=== PATIENT | male | born 1940 | race Caucasian/White ===

== ENCOUNTER 2018-05-17 04:38 | Observation (INO) ==
--- NOTE | 2018-05-17 05:04 | ED ---
HPI General Chief Complaint: Chest Pain Stated Complaint: post op issues Time Seen by Provider: 05/17/18 04:59 Source: patient and family Mode of arrival: ambulatory Limitations: no limitations History of Present Illness HPI narrative: 78-year-old male patient with history of bladder cancer status post treatment, had a herniorrhaphy done yesterday by Dr. Otoole, was released today and returns because he states that he started getting a substernal chest pain which he rates as a 3 out of 10, then vomited brownish vomitus according to his daughter. He states that the chest discomfort then subsided. He also states that he has had trouble urinating since yesterday, dribbling. He denies any fevers, diarrhea, or other symptoms. He states that he is not able to eat very much. Modifying Factors: None Associated Signs & Symptoms: Nausea, vomiting, chest discomfort, difficulty urinating Risk Factors: Postop hernia repair yesterday Related Data Home Medications Medication Instructions Recorded Confirmed tamsulosin [Flomax] 10 mg PO DAILY 05/15/18 05/17/18 Allergies Allergy/AdvReac Type Severity Reaction Status Date / Time No Known Allergies Allergy Verified 05/15/18 10:37 Review of Systems ROS: all other systems reviewed are negative PMFSH History History Provided By: Patient Medical History Medical History Enlarged prostate (Acute) History of bladder cancer (Acute) Inguinal hernia (Acute) Surgical History Surgical History H/O cystoscopy (Acute) H/O hernia repair (Acute) Hx of cholecystectomy (Acute) Social History Social History Substance History: No History of Abuse Second Hand Smoke Exposure: No Smoking Status: Never smoker How Often Do You Have a Drink Containing Alcohol: 4 or more times a week Recent Travel in [facility] within the Last 8 Weeks: No Recent Out of Country Travel within the Last 8 Weeks: No Exam Narrative Exam Narrative: GENERAL: Well-developed elderly male patient currently in mild distress. Awake and oriented x3. SKIN: Focused skin assessment warm/dry. HEAD: Atraumatic. Normocephalic. EYES: Pupils equal and round. No scleral icterus. No injection or drainage. ENT: No nasal bleeding or discharge. Mucous membranes pink and moist. NECK: Trachea midline. No JVD. CARDIOVASCULAR: Regular rate and rhythm. No murmur appreciated. RESPIRATORY: No accessory muscle use. Clear to auscultation. Breath sounds equal bilaterally. GASTROINTESTINAL: Abdomen soft, non-tender, mildly distended. Hepatic and splenic margins not palpable. The abdominal laparoscopic incisions look clean, dry, intact and without signs of redness or drainage. MUSCULOSKELETAL: No obvious deformities. No clubbing. No cyanosis. No edema. NEUROLOGICAL: Awake and alert. No obvious cranial nerve deficits. Motor grossly within normal limits. Normal speech. PSYCHIATRIC: Appropriate mood and affect; insight and judgment normal. Course Initial Documented Vital Signs Temperature 99.8 F H 05/17/18 04:39 Pulse Rate 126 H 05/17/18 04:39 Respiratory Rate 18 05/17/18 04:39 Blood Pressure 142/75 H 05/17/18 04:39 Pulse Oximetry 93 L 05/17/18 04:39 Last Documented Vital Signs Temperature 99.8 F H 05/17/18 04:39 Pulse Rate 113 H 05/17/18 04:59 Respiratory Rate 20 05/17/18 04:59 Blood Pressure 145/77 H 05/17/18 04:59 Pulse Oximetry 100 05/17/18 04:59 Medical Decision Making MDM Narrative Medical decision making narrative: A Guzmán was placed and after the Guzmán placement, patient drained more than 600 cc of urine. He was also given Zofran. He felt much better and on reevaluation at 7 AM, he reports that his symptoms are pretty much gone. I have talked to Dr. Otoole regarding lab work, x-ray findings. There is some prominent air in the left side descending colon and did not and also states that considering that he had gotten intraperitoneal in this area, he would expect to see some air in this area and this postsurgical rather than an acute process. Especially considering that the patient is doing better. At this point, he states that he be willing to admit the patient as an observation if the patient wants to stay where the patient can be released with follow-up closely with him in the office. In addition, Guzmán catheter will need to be managed with a leg bag and patient will need to follow-up with urology. At this point, had relate the discussion to the patient and he states that he does not want to stay in the hospital wants to be released home. He also does not want me to keep the leg bag and. He is on Flomax and is fairly informed regarding the urinary issues and he would prefer me to remove the Guzmán catheter and do a trial urination and plans to be released. At this point, my plan would be to release him as long as everything turns out fine with urinating. He can follow-up as an outpatient. Return for worsening of symptoms as needed. Medical Screen Exam Complete: Yes Emergency Medical Condition: Yes Differential Diagnosis Differential Diagnosis: Postop vomiting versus obstruction versus medication side effect versus dehydration versus electrolyte abnormalities versus urinary outflow obstruction Lab Data Lab results reviewed: Yes I reviewed the patient's lab results. Result diagrams: 05/17/18 05:15 05/17/18 05:15 Lab Results 05/17/18 05/17/18 Range/Units 05:15 05:15 WBC 13.5 H (4.0-11.0) th/mm3 RBC 3.94 L (4.50-5.90) mil/mm3 Hgb 12.8 L (13.0-17.0) gm/dL Hct 36.9 L (39.0-51.0) % MCV 93.8 (80.0-100.0) fL MCH 32.5 (27.0-34.0) pg MCHC 34.6 (32.0-36.0) % RDW 14.5 (11.6-17.2) % Plt Count 132 L (150-450) th/mm3 MPV 9.0 (7.0-11.0) fL Neut % (Auto) 77.5 H (16.0-70.0) % Lymph % (Auto) 7.5 L (9.0-44.0) % Burt % (Auto) 14.9 H (0.0-8.0) % Eos % (Auto) 0.0 (0.0-4.0) % Baso % (Auto) 0.1 (0.0-2.0) % Neut # (Auto) 10.4 H (1.8-7.7) th/mm3 Lymph # (Auto) 1.0 (1.0-4.8) th/mm3 Burt # (Auto) 2.0 H (0.0-0.9) th/mm3 Eos # (Auto) 0.0 (0.0-0.4) th/mm3 Baso # (Auto) 0.0 (0.0-0.2) th/mm3 WBC Differential . Differential Comment Auto diff final Sodium 135 L (136-145) meq/L Potassium 3.9 (3.5-5.1) meq/L Chloride 99 (98-107) meq/L Carbon Dioxide 27.0 (21.0-32.0) meq/L Anion Gap 9 (5-15) meq/L BUN 14 (7-18) mg/dL Creatinine 1.06 (0.60-1.30) mg/dL Estimated GFR 67 L (>89) mL/min Random Glucose 142 H (74-106) mg/dL Calcium 8.5 (8.5-10.1) mg/dL Total Bilirubin 1.3 H (0.2-1.0) mg/dL AST 23 (15-37) U/L ALT 23 (12-78) U/L Alkaline Phosphatase 52 (45-117) U/L Troponin I Less than 0.02 L (0.02-0.05) ng/mL Total Protein 7.8 (6.4-8.2) g/dL Albumin 3.3 L (3.4-5.0) g/dL Lipase 123 (73-393) U/L Imaging Data Attestation: I personally reviewed and interpreted this imaging study as follows : Radiologist's impression: Chest X-Ray 05/17/18 04:59 CONCLUSION: Question recent surgery. Lungs are clear. Abdomen X-Ray 05/17/18 05:04 CONCLUSION: Very prominent air radiolucency of the descending colon. Noncontrast CT scan of the abdomen and pelvis could be performed to evaluate for pneumatosis ECG Data Attestation: I personally reviewed and interpreted this ECG as follows: Interpretation: EKG shows sinus tachycardia rate of 112 bpm. No signs of acute ST elevations or depressions. Discharge Plan Discharge Disposition Patient Disposition: 01 Discharge Home Discharge Condition Condition: Stable Discharge Order Discharge Orders: Discharge Order (Routine); Ordered 05/17/18 Ordered By: Sam Villanueva Discharge Details Anticipated Discharge Date: 05/17/18 Diagnosis: Acute urinary retention, Postoperative vomiting Physicians Team ED Provider: Sam Villanueva Primary Care Provider: Primary Care Radha Lopez Rxs /Orders / Referrals /Forms Prescriptions: No Action tamsulosin [Flomax] 0.4 mg Capsule 10 mg PO DAILY RF: 0 Referrals: Kyree Otoole MD [Physician] - 3 Days Discharge Instructions Patient Printed Instructions: Chest Pain (ED), Urinary Retention in Men (ED) Discharge Interventions Interventions: Vital Signs Last Done: 05/17/18 04:41 Status ED Status: With Doctor
[2018-05-17 05:50] LABS: Baso % (Auto) 0.1 % (0.0-2.0); Hematocrit 36.9 % (39.0-51.0); Hemoglobin 12.8 gm/dL (13.0-17.0); Lymph % (Auto) 7.5 % (9.0-44.0); Mean Corpuscular HGB Conc 34.6 % (32.0-36.0); Mean Corpuscular Hemoglobin 32.5 pg (27.0-34.0); Mean Corpuscular Volume 93.8 fL (80.0-100.0); Mono % (Auto) 14.9 % (0.0-8.0); Neut # (Auto) 10.4 th/mm3 (1.8-7.7); Neut % (Auto) 77.5 % (16.0-70.0); Platelet Count 132 th/mm3 (150-450); Red Blood Count 3.94 mil/mm3 (4.50-5.90); Red Cell Distribution Width 14.5 % (11.6-17.2); White Blood Count 13.5 th/mm3 (4.0-11.0)
[2018-05-17 06:08] LABS: Alanine Aminotransferase 23 U/L (12-78); Albumin 3.3 g/dL (3.4-5.0); Anion Gap 9 meq/L (5-15); Aspartate Aminotransferase 23 U/L (15-37); Blood Urea Nitrogen 14 mg/dL (7-18); Calcium 8.5 mg/dL (8.5-10.1); Chloride 99 meq/L (98-107); Glomerular Filtration Rate 67 mL/min (>89); Glucose,Random 142 mg/dL (74-106); Lipase 123 U/L (73-393); Potassium 3.9 meq/L (3.5-5.1); Sodium 135 meq/L (136-145)
[2018-05-17 06:12] LABS: Alkaline Phosphatase 52 U/L (45-117); Total Protein 7.8 g/dL (6.4-8.2)
--- NOTE | 2018-05-17 06:22 | XR ---
EXAM DATE: 05/17/2018 5:38 AM EST AGE/SEX: 78 years / Male INDICATIONS: Chest pain. CLINICAL DATA: This is the patient's initial encounter. Patient reports that signs and symptoms have been present for 1 day and indicates a pain score of 3/10. MEDICAL/SURGICAL HISTORY: Carcinoma, bladder. Inguinal hernia repair. Cholecystectomy. Cystosc opy. COMPARISON: No prior exams available for comparison. FINDINGS: A single AP view of the chest demonstrates the lungs to be symmetrically aerated without evidence of mass, infiltrate or effusion. The some air underneath the right hemidiaphragm. The cardiomediastinal contours are unremarkable. Osseous structures are intact. CONCLUSION: Question recent surgery. Lungs are clear. Electronically signed by: Micah Mcneal MD Board Certified Radiologist 05/17/2018 6:20 AM EST
--- NOTE | 2018-05-17 06:29 | XR ---
EXAM DATE: 05/17/2018 5:40 AM EST AGE/SEX: 78 years / Male INDICATIONS: Vomiting. CLINICAL DATA: This is the patient's initial encounter. Patient reports that signs and symptoms have been present for 1 day and indicates a pain score of 3/10. MEDICAL/SURGICAL HISTORY: Carcinoma, bladder. Cholecystectomy. Inguinal hernia repair. Cystosc opy. COMPARISON: No prior exams available for comparison. FINDINGS: Supine and upright views of the abdomen were performed. The abdominal bowel gas pattern is normal. No air-fluid levels are seen. No abnormal masses, calcifications, or organomegaly is seen. The visualiz ed lower lungs are clear. No evidence of free intraperitoneal gas. The osseous structures are unremar kable. Cholecystectomy clips. Surgical clips throughout the right side of the pelvis likely hernia re pair. I don't see any definite pneumatosis but the anterior density in the left colon is quite prominent. T here is also some linear air density overlying the ilioischial line. Mild rightward scoliosis upper lumbar spine CONCLUSION: Very prominent air radiolucency of the descending colon. Noncontrast CT scan of the abdomen and pelvi s could be performed to evaluate for pneumatosis Electronically signed by: Micah Mcneal MD Board Certified Radiologist 05/17/2018 6:28 AM EST
[2018-05-17] MEDS ORDERED: Sodium Chlor 0.9% Inj 500 ML IV.SIG SCH (08:00)
--- NOTE | 2018-05-17 08:10 | ECG ---
Date Performed: 05/17/2018 Time Performed: 04:54:41 PTAGE: 78 years EKG: SINUS TACHYCARDIA WITH FIRST DEGREE AV BLOCK POSSIBLE LEFT ATRIAL ENLARGEMENT PROBABLE INFE RIOR MYOCARDIAL INFARCTION ABNORMAL ECG PREVIOUS TRACING : 05/16/2018 09.15 DOCTOR: Micah Fasutin Interpretating Date/Time 05/17/2018 08:09:51
[2018-05-17] MEDS ORDERED: Promethazine 25 MG Supp RECTAL PRN (10:52)
[2018-05-17] MEDS ORDERED: Bisacodyl 10 MG Supp RECTAL PRN (10:52)
[2018-05-17] MEDS ORDERED: Post-op Orders (for Pharmacy) OTHER ONE (10:52)
[2018-05-17] MEDS ORDERED: ceFAZolin Inj 1,000 MG in Sodium Chlor 0.9% Inj 100 ML IV.SIG SCH (11:00)
[2018-05-17] MEDS ORDERED: Morphine Inj 4 MG/ML Vial IV.PUSH PRN (11:30)
[2018-05-17] MEDS ORDERED: Sod Chloride 0.9% Inj 1,000 ML IV.CONT SCH (11:30)
[2018-05-17] MEDS ORDERED: levoFLOXacin 750 MG Tablet PO SCH (16:00)
[2018-05-17 18:30] VITALS: BP 128/58; PULSE 109; RESP 16; TEMP 98.4; O2SAT 96
[2018-05-17] MEDS ORDERED: Senna/Docusate Sodium 8.6/50 MG Tablet PO SCH (21:00)
--- NOTE | 2018-05-17 21:56 | MH ---
cc: Kyree Otoole MD DATE OF ADMISSION: 05/17/2018 CHIEF COMPLAINT: Nausea, vomiting, abdominal pain, urinary retention. HISTORY OF PRESENT ILLNESS: The patient is a 78-year-old male with several medical issues, recent right inguinal hernia repair, who presents with nausea, vomiting, abdominal pain and urinary retention. The patient came in the Emergency Department for evaluation with Guzmán catheter placement and 600 mL of urine obtained. The patient also had nausea medications. The patient was feeling better and consideration for observation admission. He also was complaining of chest discomfort, which has subsided. PAST MEDICAL HISTORY: Bladder cancer, enlarged prostate, inguinal hernia. PAST SURGICAL HISTORY: Cystoscopy, hernia repair on right, cholecystectomy. SOCIAL HISTORY: Denies smoking, IVDA or ETOH. ALLERGIES: NO KNOWN DRUG ALLERGIES. MEDICATIONS: See EMR. FAMILY HISTORY: Denies diabetes or hypertension. REVIEW OF SYSTEMS: GENERAL: The patient denies fever or chills. HEENT: Denies eye pain or ear pain. NECK: Denies swelling and pain. LUNGS: Denies cough or wheeze. CARDIOVASCULAR: Denies palpitations or chest pain. Complains of chest pressure. ABDOMEN: Complains of abdominal pain, nausea and vomiting. GENITOURINARY: Urinary retention. Denies dysuria. ENDOCRINE: Denies polyuria or polydipsia. INTEGUMENT: Denies any masses or lesions. PHYSICAL EXAMINATION: GENERAL: The patient in no acute distress. VITAL SIGNS: Temperature 99.8, pulse 113, respirations 20, blood pressure 145/77, saturation 100%. HEENT: Pupils equal, round and reactive. NECK: Supple. Trachea midline. LUNGS: Clear to auscultation, bilateral expansion. HEART: S1, S2. Regular. ABDOMEN: Soft. Mild tenderness to palpation. Mild distention. Well-healed surgical hernia site. EXTREMITIES: Warm and well perfused. NEUROLOGIC: GCS 15, 5/5 motor in all extremities. LABORATORY AND DIAGNOSTIC DATA: WBC 13.5, hemoglobin 12.8, hematocrit 36.9, platelets 132. Sodium 135, potassium 3.9, chloride 99, BUN 14, creatinine 1, calcium 8.5, bilirubin 1.3, lipase 123. Abdominal x-ray shows stool in colon. ASSESSMENT: The patient is a 78-year-old male with recent inguinal hernia repair, laparoscopic, who presents with urinary retention, nausea, vomiting, abdominal pain, concern for ileus. PLAN: After full clinical workup, the patient with the above-named issues. At this point, we will consider n.p.o. and consider p.o. trial, pain medication, IV fluid hydration. Urinary catheter will be removed. We will attempt voiding trial. Discussed with the patient regarding possibility of observation versus discharge planning. The patient states understanding and agrees with the plan. MD MILAN Kruger/giuseppe , 09:25 PM , 09:34 PM
== END 2018-05-17 19:59 | disposition home or self-care (01) ==
LOC: NEDA 04:38 → NEPC 04:38 → NEPGCP 12:22
PROVIDERS: ADMIT Surgery; ATTEND Surgery